=== PATIENT | female | born 1985 | race Caucasian/White ===

== ENCOUNTER 2019-04-14 07:54 | Emergency (ER) | payer BC ==
[~2019-04-14] VITALS: Ht 177.8 cm; Wt 63.5 kg
[2019-04-14 07:55] VITALS: BP_SYST 117
--- NOTE | 2019-04-14 07:55 | NUR ---
BROUGHT BACK TO BED #7 AND TRIAGED. REPORT GIVEN TO SKYLAR
--- NOTE | 2019-04-14 08:10 | NUR ---
Pt c/o pain in nose, noted bump. No other complaints or injuries per pt or noted.
[2019-04-14] MEDS ORDERED: cefTRIAXone 1 GM VIAL IM ONE (08:15)
--- NOTE | 2019-04-14 08:15 | NUR ---
ER Dr. Bailon at bedside examining patient.
[2019-04-14] MEDS ORDERED: LIDOCAINE 1%, 20 ML MDV 20 ML ONE (08:29)
--- NOTE | 2019-04-14 08:32 | NUR ---
Patient given written and verbal discharge instructions and verbalizes understanding. ER MD discussed with patient the results and treatment provided. Patient in stable condition. ID arm band removed. Rx of Doxycycline 100mg given. Patient educated on pain management and to follow up with PMD. Pain Scale 3/10.Opportunity for questions provided and answered. Medication side effect fact sheet provided.
== END 2019-04-14 08:32 | disposition home or self-care (01) ==
LOC: SED 07:54
DX: J34.0 Abscess, furuncle and carbuncle of nose (principal); F12.90 Cannabis use, unspecified, uncomplicated
CPT/HCPCS: 96372; 99283; J0696; J2001